=== PATIENT | female | born 1975 | race Caucasian/White ===

== ENCOUNTER 2019-05-21 07:11 | Observation (INO) ==
[2019-05-21] MEDS ORDERED: *HR* OxyCODONE Immed Rel 5 MG TABLET PO PRN (07:38)
[2019-05-21] MEDS ORDERED: *HR* Promethazine 25 MG/ML VIAL IVP PRN (07:38)
[2019-05-21] MEDS ORDERED: Ketorolac 30 MG/ML VIAL IVP ONE (07:38)
[2019-05-21] MEDS ORDERED: Ringers Solution, Lactated 1,000 ML IVC SCH ×2 (07:45→08:15)
[2019-05-21] MEDS ORDERED: CeFAZolin Syr 3,000MG/30 ML 3,000 MG/30 ML SYRINGE IVPB ONE (08:05)
[2019-05-21] MEDS ORDERED: *HR* Propofol 200 MG/20 ML VIAL IVP ONE (08:27)
[2019-05-21] MEDS ORDERED: Lidocaine -MPF 2% 2 ML VIAL ONE (08:28)
[2019-05-21] MEDS ORDERED: *HR* Rocuronium Bromide 50 MG/5 ML VIAL ONE (08:28)
[2019-05-21] MEDS ORDERED: Dexamethasone 4 MG/ML VIAL ONE (08:28)
[2019-05-21] MEDS ORDERED: *HR* Succinylcholine 200 MG/10 ML VIAL IVP ONE (08:28)
[2019-05-21] MEDS ORDERED: Ondansetron 4 MG/2 ML VIAL ONE (08:28)
[2019-05-21] MEDS ORDERED: Lidocaine HCL 4 ML Topical Solution (Laryng-O-Jet Kit Sterile Pak) TP ONE (08:29)
[2019-05-21] MEDS ORDERED: *HR* FentaNYL (PF) 100 MCG/2 ML VIAL ONE ×2 (08:32→10:28)
[2019-05-21] MEDS ORDERED: *HR* Midazolam HCl 2 MG/2 ML VIAL ONE (08:32)
[2019-05-21] MEDS ORDERED: Bupivacaine/EPI 1:200k 0.25%PF 10 ML VIAL INFILT ONE (10:01)
[2019-05-21] MEDS ORDERED: *HR* PHENYLEPHRINE 1,000 MCG/10 ML SYRINGE IVP ONE (10:40)
[2019-05-21] MEDS ORDERED: Neostigmine Methylsulfate 3 MG/3 ML SYRINGE ONE (10:49)
[2019-05-21] MEDS ORDERED: Acetaminophen 325 MG TABLET PO PRN ×2 (11:21→18:04)
[2019-05-21] MEDS ORDERED: *HR* OxyCODONE/APAP 5/325 TABLET PO PRN (11:21)
[2019-05-21] MEDS: *HR* HYDROmorphone (PF) 1 MG/ML SYRINGE IVP PRN ×2 (11:30→11:45)
[2019-05-21] MEDS ORDERED: *HR* Dextrose 50 % in Water (Syg) 50 ML SYRINGE IVP PRN (18:04)
[2019-05-21] MEDS ORDERED: D5% in Water 1,000 ML IVC PRN (18:04)
[2019-05-21] MEDS ORDERED: Dextrose Gel 15 GM/37.5 ML TUBE PO PRN ×2 (18:04)
[2019-05-21] MEDS: *HR* OxyCODONE/APAP 5/325 TABLET PO PRN (19:10)
[2019-05-21] MEDS: *HR* Metformin 500 MG TABLET PO SCH (19:10)
[2019-05-21] MEDS: Insulin LISPRO 300 UNITS/3 ML VIAL SQ SCH (19:11)
[2019-05-21] MEDS: Ibuprofen 400 MG TABLET PO PRN (23:11)
[2019-05-22] MEDS: *HR* OxyCODONE/APAP 5/325 TABLET PO PRN ×2 (03:49→11:29)
[2019-05-22 05:41] LABS: Basophils % 0.3 %; Eosinophils # 0.1 K/mcL (0.0-0.6); Eosinophils % 0.5 %; Hemoglobin 12.9 g/dL (11.5-15.4); Immature Granulocytes % 0.6 % (0-4); Lymphocytes # 3.2 K/mcL (0.6-4.6); Mean Corpuscular HGB Conc 33.9 g/dL (31.6-35.5); Mean Corpuscular Hemoglobin 30.8 pg (28.0-33.3); Mean Corpuscular Volume 90.7 fL (83.0-100.0); Mean Platelet Volume 10.6 fL (9.4-12.4); Monocytes % 8.9 %; Neutrophils # 6.7 K/mcL (1.6-8.9); Platelet Count 210 K/mcL (140-400); Red Blood Count 4.19 M/mcL (3.82-4.97); Red Cell Distribution Width 12.9 % (11.5-14.5); Segmented Neutrophils % 60.7 %
[2019-05-22] MEDS: Ringers Solution, Lactated 1,000 ML IVC SCH ×3 (06:56→19:33)
[2019-05-22] MEDS: Insulin LISPRO 300 UNITS/3 ML VIAL SQ SCH ×3 (08:13→18:01)
[2019-05-22] MEDS: *HR* Metformin 500 MG TABLET PO SCH ×2 (08:17→18:03)
[2019-05-22] MEDS: Aspirin 81 MG TAB.CHEW PO SCH (08:18)
[2019-05-22] MEDS: Ibuprofen 400 MG TABLET PO PRN (08:20)
[2019-05-22] MEDS ORDERED: *HR* OxyCODONE Immed Rel 5 MG TABLET PO PRN (13:08)
[2019-05-22] MEDS: *HR* OxyCODONE Immed Rel 5 MG TABLET PO PRN ×2 (15:37→22:11)
[2019-05-23] MEDS: Insulin LISPRO 300 UNITS/3 ML VIAL SQ SCH ×2 (07:46→11:32)
[2019-05-23] MEDS: Aspirin 81 MG TAB.CHEW PO SCH (09:12)
[2019-05-23] MEDS: *HR* Metformin 500 MG TABLET PO SCH (09:12)
[2019-05-23] MEDS: Ibuprofen 400 MG TABLET PO PRN (09:12)
[2019-05-23 11:11] VITALS: BP 111/76
[2019-05-23] MEDS ORDERED: *HR* OxyCODONE/APAP 5/325 TABLET PO PRN (13:06)
== END 2019-05-23 16:45 | disposition home or self-care (01) ==
LOC: 3ANU 07:11 → SAMDAY 07:11 → 3ANU 18:03
PROVIDERS: ADMIT Surgery; ATTEND Surgery